=== PATIENT | female | born 1950 | race Caucasian/White ===

== ENCOUNTER 2017-05-28 11:06 | Observation (INO) | payer MEDICARE, MEDICAID ==
[2017-05-28] MEDS ORDERED: Nitroglycerin 0.4 MG TAB (25 Tab Bottle) ONE (11:18)
[2017-05-28] MEDS ORDERED: Nitroglycerin 2% Ointment 1 INCH/1 GM Packet ONE (11:18)
[2017-05-28 11:38] LABS: #Basophils 0.1 thou/uL (0.0-0.2); #Eosinphils 0.2 thou/uL (0.0-0.7); #Monocytes 0.6 thou/uL (0.11-0.59); #Neutrophils 4.8 thou/uL (1.40-6.50); %Lymphocytes 34.5 % (21.0-51.0); %Monocytes 7.2 % (0.0-10.0); Hematocrit 43.6 % (36.0-47.0); Mean Platelet Volume 7.6 fL (7.4-10.4); Red Blood Cell (RBC) Count 4.81 mill/uL (4.20-5.40); White Blood Cell (WBC) Count 8.6 thou/uL (4.8-10.8)
[2017-05-28 12:02] LABS: ALT (SGPT) 18 U/L (8-55); AST (SGOT) 20 U/L (5-34); Alkaline Phosphatase 90 U/L (40-150); Anion Gap 11 mmol/L (10-20); BUN (Urea Nitrogen) 9 mg/dL (9.8-20.1); Bilirubin, Total 0.7 mg/dL (0.2-1.2); CK (CPK) 48 U/L (29-168); Calc. Creatinine Clearance 0 mL/min (70-130); Calcium 10.2 mg/dL (7.8-10.44); Carbon Dioxide 30 mmol/L (23-31); Chloride 104 mmol/L (98-107); Estimated GFR-MDRD 89; Globulin 3.7 g/dL (2.4-3.5); Protein, Total 7.9 g/dL (6.0-8.3)
[2017-05-28 12:05] LABS: Troponin I Less than 0.010 ng/mL (< 0.028)
--- NOTE | 2017-05-28 12:48 | RAD ---
CHEST ONE VIEW: HISTORY: Chest pain. COMPARISON: Chest one view from 08/28/2016. FINDINGS: The lungs are clear. The cardiac silhouette and mediastinal contour is within normal limits. No pneumothorax. No focal osseous abnormality. IMPRESSION: Interstitial opacities in the lung bases are similar and may be sequela of scarring. No significant change or evidence of acute intrathoracic abnormality. POS: OFF
[2017-05-28] MEDS ORDERED: Acetaminophen 500 MG TAB ONE (13:42)
[2017-05-28 14:34] LABS: Troponin I Less than 0.010 ng/mL (< 0.028)
[2017-05-28] MEDS ORDERED: Docusate 100 MG CAP PO PRN (14:56)
[2017-05-28] MEDS ORDERED: Calcium Carbonate 500 MG ChewTAB PO PRN (14:56)
[2017-05-28] MEDS ORDERED: Acetaminophen 500 MG TAB PO PRN (14:56)
[2017-05-28] MEDS ORDERED: Senokot 8.6 MG TAB PO PRN (14:56)
[2017-05-28] MEDS ORDERED: Mag-Al 1200 mg/1200 mg/30 ML UDCUP PO PRN (14:56)
[2017-05-28] MEDS ORDERED: traMADol HCl 50 MG TAB PO PRN (15:29)
[2017-05-28 15:31] VITALS: BMI 40.9
[2017-05-28] MEDS ORDERED: Carvedilol 6.25 MG TAB PO SCH (17:00)
--- NOTE | 2017-05-28 17:43 | HP-2 ---
ATTENDING PHYSICIAN: Dr. Farideh Hardin. LOCATION: [facility]. TIME: 1314. CODE STATUS: FULL CODE. PRIMARY CARE PHYSICIAN: Dr. Jorge Patel. PGY1: Dr. Alexandre Padilla. HISTORIAN: Patient and daughter. CHIEF COMPLAINT: Headache and high blood pressure. HISTORY OF PRESENT ILLNESS: A 66-year-old female with past medical history of hypertension, hyperli pidemia and CHF diastolic, presents with a headache since 5:00 a.m. this morning. Patient states th at her headache is bilateral and frontal and described as dull and aching. Patient states she check ed her blood pressure and it was high, which then prompted her to take her blood pressure medication s. She says she does not always take them. She is prescribed lisinopril/HCTZ combo and carvedilol. Associated symptoms include dizziness and some vision changes, which include seeing dogs and havin g blurry vision. Patient denied chest pain, nausea, vomiting or decreased urination. She did take 4 aspirins at home in addition to her blood pressure meds of lisinopril/HCTZ combo and carvedilol. ER: The patient received 1000 mg Tylenol in the ER for headache. She also received a nitropatch an d nitroglycerin as well as 324 mg of aspirin. PAST MEDICAL HISTORY: COPD, hyperlipidemia, JULIO CESAR, CHF, hypertension, fibromyalgia, GERD and AVNRT, s tatus post ablation. PAST SURGICAL HISTORY: Tonsillectomy, cholecystectomy, left knee replacement and left ankle surgery . ALLERGIES: PENICILLIN, CODEINE, LEVAQUIN, CIPROFLOXACIN and SULFA. MEDICATIONS: Lisinopril/HCTZ 12.5/20, carvedilol 12.5 mg, tramadol 50, Nitrostat 0.4, Xanax and Pro ventil. FAMILY HISTORY: Noncontributory. SOCIAL HISTORY: No tobacco or drug use. Endorses 1-2 drinks per week. REVIEW OF SYSTEMS: GENERAL: Denies fevers, chills, weight, appetite, sleep changes, night sweats and fatigue. EYES: Endorses vision changes. ENT: Endorses nasal congestion. RESPIRATORY: Denies cough, congestion or shortness of breath. CARDIOVASCULAR: Denies chest pain or palpitations. Endorses edema. Endorses orthopnea. GASTROINTESTINAL: Denies nausea, vomiting, diarrhea or constipation. Endorses abdominal pain, stat es it is midepigastric and burning. GENITOURINARY: Denies incontinence, dysuria, polyuria or oliguria. SKIN: Denies rashes or lesions. MUSCULOSKELETAL: Denies pain. Endorses tenderness in the left lower extremity and around the ankle . NEUROLOGIC: Denies weakness, numbness and syncope. Endorses headache. Endorses dizziness. PSYCHIATRIC: Denies anxiety and depression. PHYSICAL EXAMINATION: VITAL SIGNS: Blood pressure 128/81, pulse 66, respiratory rate 18, T-max 97.9 and pulse oximetry 95 % on room air. Current weight 104 kilograms. GENERAL: Alert and oriented x4, well-developed, well-nourished, obese and appropriately interactive . EYES: PERRLA, EOMI. Conjunctivae within normal limits. ENT: Nasal mucosa within normal limits. Oropharynx within normal limits. NECK: Supple. No lymphadenopathy, no thyromegaly. CARDIOVASCULAR: Regular rate and rhythm. No murmurs, rubs or gallops. 2+ pedal pulses, 2+ pitting edema. RESPIRATORY: Normal effort. No retractions. Clear to auscultation bilaterally. SKIN: Warm and dry. No cyanosis. ABDOMEN: Soft and nontender to palpation. Positive bowel sounds in all 4 quadrants. No masses or distention. EXTREMITIES: No clubbing or cyanosis. 2+ pitting edema in lower extremities. MUSCULOSKELETAL: Structure within normal limits. NEUROLOGIC: No focal deficits. Sensation within normal limits. Cranial nerves II-XII intact. GCS 15. PSYCHIATRIC: Appropriate. LABORATORY AND IMAGING DATA: CBC: White blood cell count 8.6, hemoglobin and hematocrit 14.2 and 4 3.6, platelets 287. Chemistry: 142/3/104/30/9/0.66/84. AST 20, ALT 18, alkaline phosphatase 90, total bilirubin 0.7, calcium 10.2, total protein 7.9, album in 4.2. CK-MB 1.1, troponin 0.01 and GFR 89. EKG: Rate 59, bradycardia, normal sinus rhythm, no ischemic changes, normal axis. Chest x-ray within normal limits. No acute cardiopulmonary changes. ASSESSMENT AND PLAN: A 66-year-old female with past medical history of hypertension, hyperlipidemia , congestive heart failure, presents with elevated blood pressure of 220/110 and headache, vision ch anges and dizziness, admitted for hypertensive urgency. 1. Hypertensive urgency, uncontrolled. Restart lisinopril/HCTZ combo in the morning. Monitor for signs and symptoms of end organ damage, q.4 neuro checks and Tylenol for headache. Also, we will re check BMP in the morning to evaluate kidney function as the patient received several doses of aspiri n the day before. 2. Hyperlipidemia, uncontrolled, not on medications. We will order lipid profile. The patient's c alculated ASCVD risk based on lab values from the clinic a year ago was 14.1. We will start atorvas tatin as patient's liver enzymes are normal. We will also start aspirin 81 mg. 3. Congestive heart failure, diastolic, not in acute exacerbation, currently asymptomatic. We will start carvedilol to reduce mortality risk. We will monitor for signs and symptoms of acute volume overload. 4. Chronic obstructive pulmonary disease, chronic. No acute exacerbation. Asymptomatic. We will restart home meds, Proventil and Spiriva. 5. Hypokalemia. We will replace with 40 of KCl. 6. Deep venous thrombosis prophylaxis. We will start patient on Lovenox. DISPOSITION AND LENGTH OF STAY: Two days. Symptomatic medications will be provided. History and physical exam as well as management was discussed with Dr. Farideh Hardin.
[2017-05-28] MEDS ORDERED: Potassium Chloride 40 MEQ in Sodium Chloride 0.9% 500 ML IVPB SCH ×4 (18:00)
[2017-05-28 18:05] LABS: Troponin I Less than 0.010 ng/mL (< 0.028)
[2017-05-28] MEDS: Famotidine 20 MG TAB PO SCH (19:33)
[2017-05-28] MEDS: PROVENTIL INHALER 6.7 G (200 INHALATIONS) INH SCH (19:36)
[2017-05-28] MEDS: Mometasone/Formoterol 120 PUFF INHALER INH SCH (19:38)
[2017-05-28] MEDS ORDERED: Potassium Chloride 20 MEQ TAB PO SCH (21:00)
[2017-05-28] MEDS ORDERED: Atorvastatin Calcium 40 MG TAB PO SCH (21:00)
[2017-05-29] MEDS: PROVENTIL INHALER 6.7 G (200 INHALATIONS) INH SCH ×3 (00:23→13:25)
--- NOTE | 2017-05-29 01:45 | HP ---
DATE OF ADMISSION: 05/28/2017 ATTENDING: Dr. Farideh Hardin. RESIDENT: Dr. Berta Padilla. Ms. Masterson is a pleasant 66-year-old white female with a past medical history of hypertension and asthma, who presents with hypertensive emergency. She presented to the ER with blood pressures greater than 200/180 with headache. In the ER, she was given a nitropatch and IV labetalol. She currently has a blood pressure of 138/67. EKG was normal. Cardiac enzymes are negative x2. She is currently asymptomatic. We will resume her home medications and observe overnight, as it is very possible that once the nitropatch has been removed, her blood pressures will rebound. BERNABE
[2017-05-29 04:51] LABS: #Eosinphils 0.2 thou/uL (0.0-0.7); #Lymphocytes 2.7 thou/uL (1.20-3.40); #Monocytes 0.5 thou/uL (0.11-0.59); #Neutrophils 3.1 thou/uL (1.40-6.50); %Basophils 0.7 % (0.0-1.0); %Eosinophils 2.8 % (0.0-10.0); %Lymphocytes 41.2 % (21.0-51.0); %Monocytes 8.3 % (0.0-10.0); Hematocrit 39.4 % (36.0-47.0); Mean Platelet Volume 7.9 fL (7.4-10.4); Red Blood Cell (RBC) Count 4.34 mill/uL (4.20-5.40); White Blood Cell (WBC) Count 6.5 thou/uL (4.8-10.8)
[2017-05-29 05:26] LABS: Anion Gap 13 mmol/L (10-20); BUN (Urea Nitrogen) 12 mg/dL (9.8-20.1); Calc. Creatinine Clearance 133 mL/min (70-130); Calcium 9.6 mg/dL (7.8-10.44); Carbon Dioxide 26 mmol/L (23-31); Chloride 104 mmol/L (98-107); Estimated GFR-MDRD Greater than 90
[2017-05-29] MEDS: Mometasone/Formoterol 120 PUFF INHALER INH SCH (06:29)
--- NOTE | 2017-05-29 06:48 | PDOC.FM ---
- Subjective Subjective: No acute events overnight. No headache this morning. VSS overnight. - Objective MAR Reviewed: Yes Vital Signs & Weight: Vital Signs (12 hours) Temp Pulse Resp BP Pulse Ox 05/29/17 04:00 98.1 F 58 L 14 161/71 H 94 L 05/29/17 00:00 97.7 F 56 L 12 122/59 L 92 L 05/28/17 20:00 97.7 F 64 16 05/28/17 19:36 64 16 96 05/28/17 19:25 98.3 F 57 L 18 138/70 94 L Weight Weight 101.605 kg I&O: 05/27/17 05/28/17 05/29/17 06:59 06:59 06:59 Intake Total 810 Output Total 500 Balance 310 Result Diagrams: 05/29/17 04:36 05/29/17 04:36 Phys Exam - Physical Examination HEENT: PERRLA, moist MMs, sclera anicteric Neck: no nodes, no JVD, supple Respiratory: no wheezing, no rales, no rhonchi, clear to auscultation bilateral Cardiovascular: RRR, no significant murmur, no rub, gallop Gastrointestinal: soft, non-tender, no distention Musculoskeletal: edema present (2+ pitting edema) Neurological: non-focal Psychiatric: normal affect, A&O x 3 Dx/Plan (1) Hyperlipidemia Code(s): E78.5 - HYPERLIPIDEMIA, UNSPECIFIED Status: Acute (2) Hypertensive urgency Code(s): I16.0 - HYPERTENSIVE URGENCY Status: Acute - Plan Plan: 66 yo female with pmhx of htn and CHFd admitted for hypertensive urgency. 1.)Hypertensive urgency-resolved Headache resolved. Initial complaint of jaw pain. Recommend outpatient follow-up with cardiology regarding jaw pain and >1 yr since stress test. Patient denied chestpain and had negative trops X 3. Home meds of Lisinopril and HCTZ resumed but increased dose to 20/12.5mg daily. 2.)HLD-uncontrolled ASCVD risk of 14.4% Started atorvastatin 40mg; recommend titrating up in outpatient setting. 3.)CHFd-no acute exacerbation -Carvedilol resumed (home med) -Recommend outpatient follow-up with cardiology as it has been >1yr since echo. Dispo-Dc home with close follow-up with PCP
[2017-05-29] MEDS ORDERED: Lisinopril/Hydrochlorothiazide 20 mg/12.5 mg Tablet PO SCH (09:00)
[2017-05-29] MEDS ORDERED: Enoxaparin Sodium 40 MG/0.4 ML SYRINGE SC SCH (09:00)
[2017-05-29] MEDS: Carvedilol 25 MG TAB PO SCH ×2 (09:30→16:24)
[2017-05-29] MEDS: Famotidine 20 MG TAB PO SCH (09:30)
--- NOTE | 2017-05-29 11:57 | ADD-PRG ---
DATE OF SERVICE: 05/29/2017 This is an addendum to the note of Dr. Berta Padilla. Ms. Masterson this morning is awake, alert, oriented x3. She is in fact pleasant and her blood pressure is now normal. Her hypertensive urgency has resolved and she will be discharged home on her usual medications. She tells us that she in the past only took her medications when she developed severe headache. We have, of course, explained to her the importance of taking her medications daily and t o follow up with our clinic on a regular basis. Her CBC was normal. Her chemistries were normal ex cept for slightly low potassium of 3, which was corrected to 3.8. Her serial troponins were all neg ative.
[2017-05-29 15:30] VITALS: TEMP 98.4
[2017-05-29 17:29] VITALS: BP 166/88
--- NOTE | 2017-05-30 11:36 | DIS-2 ---
DATE OF ADMISSION: 05/28/2017 DATE OF DISCHARGE: 05/29/2017 ADMITTING RESIDENT: Katie Schroeder MD ADMITTING ATTENDING: Farideh Hardin DO DISCHARGING RESIDENT: Katie Schroeder MD DISCHARGING ATTENDING: Viktor Malik MD CONSULTATIONS: None. PROCEDURES: 1. EKG, normal. 2. Chest x-ray, clear cardiac silhouette and mediastinal contour within normal limits. No pneumothorax, no focal osseous abnormality, interstitial opacities in the lung bases are similar and maybe sequelae of scarring. No significant change or evidence of acute intrathoracic abnormality. PRIMARY DIAGNOSIS: Hypertensive urgency. SECONDARY DIAGNOSES: 1. Hypertension. 2. Hyperlipidemia. 3. Congestive heart failure. 4. Chronic obstructive pulmonary disease. 5. Hypokalemia. DISCHARGE MEDICATIONS: 1. Albuterol sulfate 2 puffs every 6 hours. 2. Aspirin 81 mg daily. 3. Atorvastatin 40 mg at bedtime. 4. Lisinopril/HCTZ 20/12.5 mg oral daily. 5. Xanax 0.5 mg orally twice a day as needed. 6. Tylenol 650 mg every 4 hours as needed for headaches. 7. Famotidine 20 mg oral twice a day. 8. Tramadol 50 mg oral 4 times a day as needed for pain. 9. Symbicort 1 puff inhalation b.i.d. 10. Carvedilol 12.5 mg oral b.i.d. daily. 11. Potassium chloride. 12. Lasix, unknown dose. Patient was unaware of the dose and has been out of her medicine for several days. DISCONTINUED MEDICATIONS: Lisinopril/hydrochlorothiazide 10 mg/12.5 mg. HISTORY OF PRESENT ILLNESS AND HOSPITAL COURSE: This is a 66-year-old female with a past medical history of hypertension, hyperlipidemia, and diastolic congestive heart failure who presented with a headache starting at 5:00 a.m. on 05/28/2017. The patient stated that her headache was bilateral as well as frontal, described as dull and aching. The patient states she checked her blood pressure and it was elevated which prompted her to take her blood pressure medication. She says she does not always take them. She is normally prescribed lisinopril/HCTZ combination and carvedilol. Associated symptoms include dizziness and some vision changes. Patient denied chest pain, nausea, vomiting or decreased urination. She did take 4 aspirins at home in addition to her blood pressure meds of lisinopril/HCTZ combination and carvedilol. Patient received 1000 mg, Tylenol in the ER for the headache. She also received a nitropatch and nitroglycerin as well as 324 mg of aspirin in the ER. Upon getting to the ER, the patient's blood pressure was 220/110. The patient was admitted for hypertensive urgency. After patient received her nitro patch, the patient's blood pressure rapidly dropped to 128/81. The patient's vitals were otherwise within normal limits. Patient's exam was grossly within normal limits as well. The patient's troponins were less than 0.01 x3 as well as her CK-MB was normal. Patient's additional labs including a CBC and CMP were grossly normal aside from having a low potassium or hypokalemia of 3.0. 1. Hypertensive urgency. The patient presented to the ER with blood pressures greater than 200/110. Patient was given the nitropatch and IV labetalol. The patient's blood pressures dropped to the 120s to 130s systolic. The patient's EKG was normal. Her cardiac enzymes were negative x3. The patient initially had a headache, was given 1000 mg of IV Tylenol. Patient was admitted to the hospital, monitored overnight. Since the patient's blood pressure rapidly dropped, the patient's home medication of lisinopril/HCTZ was held overnight. The patient was given hydralazine p.r.n. overnight which she did not require. The nitropatch was removed as the patient described a worsening headache. The patient's blood pressures were controlled overnight. She was started on a higher dose of lisinopril/HCTZ, it was the 12.5/20 combination and the next morning, the patient's blood pressure was controlled and patient was asymptomatic. 2. Hyperlipidemia. The patient is not currently on any statin. The patient's lipid profile was ordered and her ASCVD risk was calculated to be 14.1%. The patient was started on atorvastatin 40 mg daily. 3. Diastolic congestive heart failure. The patient was not in an acute exacerbation. The patient stated that she took carvedilol which was restarted during the hospital stay. The patient was not volume overloaded and without symptoms of an acute heart failure exacerbation. 4. Chronic obstructive pulmonary disease. Patient said her home med was Proventil. The patient was not actively having an acute exacerbation and was not short of breath. She was satting well, not tachypneic. The patient was also restarted on her Spiriva. 5. Hypokalemia. Patient's hypokalemia was replaced with 40 KCl IV and her hypokalemia resolved. DISPOSITION: Stable. DISCHARGE INSTRUCTIONS: Patient was discharged home on a heart healthy diet with no restrictions on activity with close followup with her primary care physician at [facility]. BERNABE
== END 2017-05-29 17:49 | disposition home or self-care (01) ==
LOC: ERS 11:06 → 2SW 13:10
PROVIDERS: ADMIT Family Medicine; ATTEND Family Medicine
DX: I16.0 Hypertensive urgency (principal); E78.5 Hyperlipidemia, unspecified; J44.9 Chronic obstructive pulmonary disease, unspecified; E87.6 Hypokalemia; I11.0 Hypertensive heart disease with heart failure; I50.30 Unspecified diastolic (congestive) heart failure; G47.33 Obstructive sleep apnea (adult) (pediatric); M79.7 Fibromyalgia; K21.9 Gastro-esophageal reflux disease without esophagitis; Z79.82 Long term (current) use of aspirin; Z79.899 Other long term (current) drug therapy; Z88.1 Allergy status to other antibiotic agents; Z88.5 Allergy status to narcotic agent; Z88.0 Allergy status to penicillin; Z88.2 Allergy status to sulfonamides; Z96.652 Presence of left artificial knee joint; Z90.89 Acquired absence of other organs; Z90.49 Acquired absence of other specified parts of digestive tract; Z98.890 Other specified postprocedural states; Z86.79 Personal history of other diseases of the circulatory system
CPT/HCPCS: 71010; 80048; 80053; 80061; 82550; 82553; 84484 ×2; 85025 ×2; 93005; 94640 ×2; 94664; 96372; 99285; G0378; 36415; J1650; J3480; J7050

== ENCOUNTER 2017-05-31 07:47 | Emergency (ER) | payer MEDICARE, MEDICAID ==
[2017-05-31 08:45] LABS: #Basophils 0.1 thou/uL (0.0-0.2); #Eosinphils 0.2 thou/uL (0.0-0.7); #Lymphocytes 2.5 thou/uL (1.20-3.40); #Monocytes 0.6 thou/uL (0.11-0.59); #Neutrophils 3.9 thou/uL (1.40-6.50); %Basophils 1.2 % (0.0-1.0); %Eosinophils 2.3 % (0.0-10.0); %Lymphocytes 34.7 % (21.0-51.0); %Monocytes 7.7 % (0.0-10.0); Hematocrit 40.9 % (36.0-47.0); Mean Platelet Volume 8.1 fL (7.4-10.4); White Blood Cell (WBC) Count 7.2 thou/uL (4.8-10.8)
[2017-05-31 09:10] LABS: Troponin I Less than 0.010 ng/mL (< 0.028)
[2017-05-31 09:13] LABS: ALT (SGPT) 17 U/L (8-55); AST (SGOT) 19 U/L (5-34); Alkaline Phosphatase 87 U/L (40-150); Anion Gap 10 mmol/L (10-20); BUN (Urea Nitrogen) 9 mg/dL (9.8-20.1); Bilirubin, Total 0.6 mg/dL (0.2-1.2); CK (CPK) 54 U/L (29-168); Calc. Creatinine Clearance 0 mL/min (70-130); Calcium 9.9 mg/dL (7.8-10.44); Carbon Dioxide 29 mmol/L (23-31); Chloride 105 mmol/L (98-107); Estimated GFR-MDRD Greater than 90; Globulin 3.4 g/dL (2.4-3.5); Lipase 39 U/L (8-78); Protein, Total 7.4 g/dL (6.0-8.3)
--- NOTE | 2017-05-31 09:20 | RAD ---
PORTABLE UPRIGHT FRONTAL CHEST: Date: 05/31/17 COMPARISON: 05/28/17. HISTORY: High blood pressure. Chest pain. FINDINGS: No pneumothorax, pleural fluid, focal consolidation, or alveolar edema. Heart and mediastinal contou r unremarkable. IMPRESSION: No acute findings. POS: [facility]
[2017-05-31] MEDS ORDERED: cloNIDine HCl 0.1 MG TAB ONE (09:25)
--- NOTE | 2017-06-02 14:48 | EKG ---
Test Reason : Blood Pressure : / mmHG Vent. Rate : 057 BPM Atrial Rate : 057 BPM P-R Int : 164 ms QRS Dur : 090 ms QT Int : 460 ms P-R-T Axes : 053 018 024 degrees QTc Int : 447 ms Sinus bradycardia Otherwise normal ECG Confirmed by RAFAEL HARMAN, JIMENA Saenz ([id number]), business editor JEREMY DOWD ([id number]) on 06/02/2017 2:48:19 PM Referred By: Confirmed By:JIMENA HALL MD
== END 2017-05-31 09:37 | disposition home or self-care (01) ==
LOC: ERS 07:47
DX: I11.0 Hypertensive heart disease with heart failure (principal); I50.9 Heart failure, unspecified; J44.9 Chronic obstructive pulmonary disease, unspecified; E78.2 Mixed hyperlipidemia; G47.30 Sleep apnea, unspecified; F41.9 Anxiety disorder, unspecified; Z79.899 Other long term (current) drug therapy
CPT/HCPCS: 36415; 71010; 80053; 82553; 83690; 83880; 84484; 85025; 93005

== ENCOUNTER 2017-08-28 08:04 | Emergency (ER) | payer MEDICARE, MEDICAID | END 2017-08-28 08:33 | disposition home or self-care (01) | LOC: ERS 08:04 | DX: J11.1 Influenza due to unidentified influenza virus with other respiratory manifestations (principal); J44.9 Chronic obstructive pulmonary disease, unspecified; E78.1 Pure hyperglyceridemia; E78.5 Hyperlipidemia, unspecified; G47.30 Sleep apnea, unspecified; I11.0 Hypertensive heart disease with heart failure; I50.9 Heart failure, unspecified; F41.9 Anxiety disorder, unspecified | CPT/HCPCS: 99283 ==

== ENCOUNTER 2017-09-11 09:49 | Emergency (ER) | payer MEDICARE, MEDICAID ==
[2017-09-11 10:15] LABS: #Basophils 0.1 thou/uL (0.0-0.2); #Eosinphils 0.3 thou/uL (0.0-0.7); #Lymphocytes 3.4 thou/uL (1.20-3.40); #Monocytes 0.7 thou/uL (0.11-0.59); #Neutrophils 5.9 thou/uL (1.40-6.50); %Eosinophils 2.8 % (0.0-10.0); %Lymphocytes 32.6 % (21.0-51.0); %Monocytes 6.3 % (0.0-10.0); %Neutrophils 57.3 % (42.0-75.0); Hemoglobin 14.6 g/dL (12.0-16.0); Mean Corpuscular HGB CONC 31.7 g/dL (32.0-36.0); Mean Corpuscular Hemoglobin 28.6 pg (27.0-31.0); Mean Corpuscular Volume 90.2 fl (81.0-99.0); Mean Platelet Volume 7.7 fL (7.4-10.4); Platelet Count 370 thou/uL (130-400); RBC Distribution Width 12.6 % (11.5-14.5); White Blood Cell (WBC) Count 10.4 thou/uL (4.8-10.8)
[2017-09-11 10:40] LABS: ALT (SGPT) 18 U/L (8-55); AST (SGOT) 18 U/L (5-34); Albumin 4.2 g/dL (3.4-4.8); Alkaline Phosphatase 87 U/L (40-150); Anion Gap 15 mmol/L (10-20); BUN (Urea Nitrogen) 11 mg/dL (9.8-20.1); Bilirubin, Total 0.4 mg/dL (0.2-1.2); CK (CPK) 61 U/L (29-168); Calc. Creatinine Clearance 0 mL/min (70-130); Calcium 10.2 mg/dL (7.8-10.44); Carbon Dioxide 22 mmol/L (23-31); Chloride 105 mmol/L (98-107); Estimated GFR-MDRD 82; Globulin 3.8 g/dL (2.4-3.5); Glucose 90 mg/dL (80-115); Lipase 55 U/L (8-78); Sodium 138 mmol/L (136-145)
[2017-09-11 10:44] LABS: CKMB 1.7 ng/mL (0-6.6); Troponin I Less than 0.010 ng/mL (< 0.028)
[2017-09-11] MEDS ORDERED: Aspirin 325 MG TAB ONE (10:58)
--- NOTE | 2017-09-11 11:13 | RAD ---
PORTABLE UPRIGHT FRONTAL CHEST RADIOGRAPH: Date: 09/11/17 COMPARISON: 05/31/17. HISTORY: Chest pain. FINDINGS: No pneumothorax, pleural fluid, focal consolidation, or alveolar edema. Heart and mediastinal contour s are stable. IMPRESSION: No acute findings. POS: [facility]
== END 2017-09-11 12:58 | disposition home or self-care (01) ==
LOC: ERS 09:49
DX: R07.89 Other chest pain (principal); J44.9 Chronic obstructive pulmonary disease, unspecified; E78.2 Mixed hyperlipidemia; G47.30 Sleep apnea, unspecified; I11.0 Hypertensive heart disease with heart failure; I50.9 Heart failure, unspecified; F41.9 Anxiety disorder, unspecified; Z79.899 Other long term (current) drug therapy
CPT/HCPCS: 36415; 71045; 80053; 82553; 83690; 83880; 84484; 85025; 93005

== ENCOUNTER 2017-10-05 09:16 | Observation (INO) | payer MEDICARE, MEDICAID ==
[2017-10-05] MEDS ORDERED: Acetaminophen 500 MG TAB ONE (09:52)
[2017-10-05] MEDS ORDERED: Nitroglycerin 0.4 MG TAB (25 Tab Bottle) ONE (09:52)
[2017-10-05] MEDS ORDERED: Nitroglycerin 2% Ointment 1 INCH/1 GM Packet ONE (10:09)
[2017-10-05 10:20] LABS: #Basophils 0.1 thou/uL (0.0-0.2); #Eosinphils 0.2 thou/uL (0.0-0.7); #Monocytes 0.7 thou/uL (0.11-0.59); %Eosinophils 2.6 % (0.0-10.0); %Lymphocytes 33.4 % (21.0-51.0); %Monocytes 7.7 % (0.0-10.0); %Neutrophils 55.3 % (42.0-75.0); Hemoglobin 13.7 g/dL (12.0-16.0); Mean Corpuscular Hemoglobin 29.8 pg (27.0-31.0); Mean Corpuscular Volume 90.3 fl (81.0-99.0); Mean Platelet Volume 8.3 fL (7.4-10.4); Platelet Count 295 thou/uL (130-400); RBC Distribution Width 12.8 % (11.5-14.5); Red Blood Cell (RBC) Count 4.61 mill/uL (4.20-5.40); White Blood Cell (WBC) Count 9.1 thou/uL (4.8-10.8)
--- NOTE | 2017-10-05 10:20 | RAD ---
CHEST 1 VIEW: Date: 10/05/17 HISTORY: Chest pain. COMPARISON: 09/11/17. FINDINGS: Cardiac silhouette is magnified by projection. Shallow inspiration accentuates pulmonary markings. Me diastinum is midline. There is no lobar consolidation or evidence of pneumothorax. air sampling and monitoring le ads overlie the chest. There are degenerative changes of each shoulder. IMPRESSION: No active cardiopulmonary abnormalities are demonstrated. POS: [facility]
[2017-10-05 10:48] LABS: CKMB 1.1 ng/mL (0-6.6); Troponin I Less than 0.010 ng/mL (< 0.028)
[2017-10-05 11:07] LABS: Albumin 4.2 g/dL (3.4-4.8); Calcium 10.3 mg/dL (7.8-10.44); Chloride 104 mmol/L (98-107); Globulin 3.8 g/dL (2.4-3.5); Glucose 89 mg/dL (80-115); Potassium 3.3 mmol/L (3.5-5.1); Sodium 141 mmol/L (136-145)
[2017-10-05 11:08] LABS: Anion Gap 12 mmol/L (10-20); Bilirubin, Total 0.3 mg/dL (0.2-1.2); Carbon Dioxide 28 mmol/L (23-31)
[2017-10-05 11:09] LABS: Alkaline Phosphatase 93 U/L (40-150)
[2017-10-05 11:10] LABS: Calc. Creatinine Clearance 0 mL/min (70-130); Estimated GFR-MDRD 78
[2017-10-05 11:11] LABS: BUN (Urea Nitrogen) 18 mg/dL (9.8-20.1)
[2017-10-05 11:12] LABS: ALT (SGPT) 15 U/L (8-55); AST (SGOT) 17 U/L (5-34)
[2017-10-05 13:14] VITALS: TEMP 98.5
[2017-10-05 13:21] VITALS: BP 130/81; BMI 41.7
[2017-10-05] MEDS ORDERED: Acetaminophen 325 MG TAB PO PRN (13:48)
[2017-10-05] MEDS ORDERED: ALPRAZolam 0.5 MG TAB PO PRN (13:48)
[2017-10-05] MEDS ORDERED: Furosemide 20 MG TAB PO PRN (13:50)
[2017-10-05] MEDS ORDERED: traMADol HCl 50 MG TAB PO PRN (13:53)
[2017-10-05 14:09] LABS: Troponin I Less than 0.010 ng/mL (< 0.028)
[2017-10-05] MEDS ORDERED: Mometasone/Formoterol 120 PUFF INHALER INH SCH (18:30)
[2017-10-05] MEDS ORDERED: PROVENTIL INHALER 6.7 G (200 INHALATIONS) INH SCH (19:00)
[2017-10-05] MEDS ORDERED: Carvedilol 6.25 MG TAB PO SCH (21:00)
[2017-10-05] MEDS ORDERED: Famotidine 20 MG TAB PO SCH (21:00)
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
[2017-10-06] MEDS ORDERED: Lisinopril/Hydrochlorothiazide 20 mg/12.5 mg Tablet PO SCH (09:00)
== END 2017-10-05 14:52 | disposition left against medical advice (07) ==
LOC: ERS 09:16 → 2SW 11:54
PROVIDERS: ADMIT Internal Medicine; ATTEND Internal Medicine
DX: R07.2 Precordial pain (principal); I10 Essential (primary) hypertension; E78.5 Hyperlipidemia, unspecified; F32.9 Major depressive disorder, single episode, unspecified; E66.01 Morbid (severe) obesity due to excess calories; M19.90 Unspecified osteoarthritis, unspecified site; Z68.41 Body mass index [BMI] 40.0-44.9, adult; Z79.82 Long term (current) use of aspirin; Z79.2 Long term (current) use of antibiotics; Z79.899 Other long term (current) drug therapy; Z88.0 Allergy status to penicillin; Z88.2 Allergy status to sulfonamides; Z88.5 Allergy status to narcotic agent; Z88.1 Allergy status to other antibiotic agents; Z96.652 Presence of left artificial knee joint; Z90.710 Acquired absence of both cervix and uterus; Z90.49 Acquired absence of other specified parts of digestive tract; Z90.89 Acquired absence of other organs; Z98.890 Other specified postprocedural states
CPT/HCPCS: 71045; 80053; 82553; 83880; 84484 ×2; 85025; 93005; 99285; G0378; 36415

== ENCOUNTER 2017-10-06 11:01 | Observation (INO) | payer MEDICARE, MEDICAID ==
--- NOTE | 2017-10-06 11:25 | RAD ---
CHEST 1 VIEW: HISTORY: Chest pain. COMPARISON: 10/05/17. FINDINGS: Cardiac silhouette is magnified by projection. Pulmonary vasculature is unremarkable. Mediastinum i s midline. There is no confluent airspace consolidation or evidence of pneumothorax. Degenerative c hanges involve each shoulder. electronic device monitor leads overlie the chest. IMPRESSION: No active cardiopulmonary abnormalities are demonstrated. POS: [facility]
[2017-10-06 11:27] LABS: #Basophils 0.1 thou/uL (0.0-0.2); #Eosinphils 0.2 thou/uL (0.0-0.7); #Lymphocytes 3.4 thou/uL (1.20-3.40); #Monocytes 0.5 thou/uL (0.11-0.59); #Neutrophils 5.7 thou/uL (1.40-6.50); %Basophils 1.2 % (0.0-1.0); %Eosinophils 2.1 % (0.0-10.0); %Lymphocytes 33.9 % (21.0-51.0); %Monocytes 5.2 % (0.0-10.0); %Neutrophils 57.6 % (42.0-75.0); Mean Corpuscular Hemoglobin 29.8 pg (27.0-31.0); Mean Corpuscular Volume 90.3 fl (81.0-99.0); Mean Platelet Volume 8.5 fL (7.4-10.4); Platelet Count 298 thou/uL (130-400); RBC Distribution Width 12.8 % (11.5-14.5); Red Blood Cell (RBC) Count 4.69 mill/uL (4.20-5.40)
[2017-10-06 11:53] LABS: CKMB 1.2 ng/mL (0-6.6); Troponin I Less than 0.010 ng/mL (< 0.028)
[2017-10-06 12:42] LABS: Calcium 9.8 mg/dL (7.8-10.44); Chloride 106 mmol/L (98-107); Sodium 142 mmol/L (136-145)
[2017-10-06 12:43] LABS: Globulin 3.6 g/dL (2.4-3.5); Glucose 117 mg/dL (80-115); Protein, Total 7.6 g/dL (6.0-8.3)
[2017-10-06 12:44] LABS: Anion Gap 11 mmol/L (10-20); Carbon Dioxide 28 mmol/L (23-31)
[2017-10-06 12:45] LABS: Bilirubin, Total 0.4 mg/dL (0.2-1.2)
[2017-10-06 12:46] LABS: Alkaline Phosphatase 88 U/L (40-150); Calc. Creatinine Clearance 0 mL/min (70-130); Estimated GFR-MDRD 90
[2017-10-06 12:47] LABS: BUN (Urea Nitrogen) 11 mg/dL (9.8-20.1)
[2017-10-06 12:48] LABS: AST (SGOT) 15 U/L (5-34)
[2017-10-06 12:49] LABS: ALT (SGPT) 12 U/L (8-55); CK (CPK) 44 U/L (29-168)
[2017-10-06] MEDS ORDERED: Potassium Bicarbonate/Cit Ac 25 MEQ TAB PO SCH (14:30)
[2017-10-06 15:28] LABS: Troponin I Less than 0.010 ng/mL (< 0.028)
[2017-10-06] MEDS ORDERED: Acetaminophen 325 MG TAB PO PRN (16:04)
[2017-10-06] MEDS ORDERED: Ondansetron HCl/PF 4 MG/2 ML Vial IVP PRN (16:04)
[2017-10-06] MEDS ORDERED: Ondansetron ODT 4 MG TAB SL PRN (16:04)
[2017-10-06] MEDS ORDERED: Aspirin 325 MG TAB PO SCH (16:15)
[2017-10-06 16:33] VITALS: BMI 40.6
[2017-10-06] MEDS ORDERED: Nitroglycerin 2% Ointment 1 INCH/1 GM Packet TOP SCH (22:00)
[2017-10-07 04:52] LABS: Anion Gap 12 mmol/L (10-20); BUN (Urea Nitrogen) 12 mg/dL (9.8-20.1); Calc. Creatinine Clearance 128 mL/min (70-130); Calcium 9.9 mg/dL (7.8-10.44); Carbon Dioxide 27 mmol/L (23-31); Chloride 104 mmol/L (98-107); Estimated GFR-MDRD 89; Glucose 90 mg/dL (80-115); Potassium 4.3 mmol/L (3.5-5.1); Sodium 139 mmol/L (136-145)
[2017-10-07] MEDS ORDERED: traMADol HCl 50 MG TAB PO PRN (05:43)
[2017-10-07] MEDS ORDERED: Acetaminophen 325 MG TAB PO PRN (05:44)
[2017-10-07] MEDS ORDERED: PROVENTIL INHALER 6.7 G (200 INHALATIONS) INH PRN (05:45)
[2017-10-07] MEDS ORDERED: ALPRAZolam 0.5 MG TAB PO PRN (05:45)
[2017-10-07] MEDS ORDERED: Furosemide 20 MG TAB PO PRN (05:48)
[2017-10-07 07:07] VITALS: TEMP 97.9
[2017-10-07] MEDS: Carvedilol 25 MG TAB PO SCH ×2 (08:07→11:18)
[2017-10-07] MEDS: Amlodipine 10 MG TAB PO SCH ×2 (08:07→08:09)
[2017-10-07] MEDS ORDERED: Azithromycin 250 MG TAB PO SCH (09:00)
[2017-10-07] MEDS ORDERED: Lisinopril/Hydrochlorothiazide 20 mg/12.5 mg Tablet PO SCH (09:00)
[2017-10-07] MEDS ORDERED: Famotidine 20 MG TAB PO SCH (09:00)
--- NOTE | 2017-10-07 11:30 | NM ---
RADIONUCLIDE STRESS ONLY MYOCARDIAL PERFUSION SCAN WITH CT ATTENUATION CORRECTION AND SPECT IMAGING LEFT VENTRICULAR WALL MOTION EVALUATION AND EJECTION FRACTION: HISTORY: Chest pain. FINDINGS: There is homogeneous uptake of radiotracer throughout the left ventricular myocardium without focal p erfusion defect. QGS analysis of gated SPECT images shows some dyskinesis of the septal base. Ejection fraction is ca lculated at 59%. IMPRESSION: Normal myocardial perfusion stress only exam. Normal left ventricular ejection fraction. POS: [facility]
[2017-10-07 12:45] VITALS: BP 129/70
--- NOTE | 2017-10-07 14:50 | HP ---
History of present illness: Miss brumfield is a 67 yr old w/f with pmh of HTN, djd came with c/o chest pain which is retrosternal, sharp, radiates to left arm. No diaphoresis, no nausea, no sob. pain started 2 days ago on and off. pt was admitted on 10/05/17but she did not stay. she signed out AMA and came back with chest pain today. pt was evaluated in the ER and had normal cardiac enzymes and EKG. she is being admitted to rule out acute ME and and for further managemnt in view of her risk factors. Pt recieved Asa and nitro in ER. Pat medical history 1. Hypertension, 2. Hyperlipidemia. 3. Degenerative joint disease. 4. History of sleep apnea. 5. History of fibromyalgia. PAST SURGICAL HISTORY: 1. Status post left knee replacement. 2. Status post cholecystectomy. 3. Status post hysterectomy. 4. Status post tonsillectomy. CURRENT MEDICATIONS: Patient is on Coreg 12.5 b.i.d., lisinopril with hydrochlorothiazide 20/12.5 daily, tramadol 50 mg q.i.d. p.r.n., Pepcid 20 mg b.i.d., aspirin 81 mg daily, Xanax 0.5 b.i.d. p.r.n., albuterol inhaler two puffs q.i.d. p.r.n., Tylenol p.r.n. ALLERGIES: PENICILLIN, SULFA, LEVAQUIN, CODEINE and QUINOLONES. FAMILY HISTORY: Nothing of interest. SOCIAL HISTORY: The patient lives with her daughter. No history of smoking. No history of alcohol. REVIEW OF SYSTEMS: Unremarkable except for the chest pain. PHYSICAL EXAMINATION: GENERAL: The patient is alert, awake, oriented x3. VITAL SIGNS: Temperature 98, pulse 76, respirations 20, blood pressure 166/80. HEENT: Head is normocephalic, atraumatic. Pupils are equal and reactive to light. Nasopharynx is pale and dry. Hard and soft palate, no lesions seen. SKIN: Skin turgor decreased. NECK: Supple. No JVD. LUNGS: Bilateral air entry present, no rales, no rhonchi. CARDIAC: S1, S2 regular. ABDOMEN: Soft, no distention, no tenderness. Normal bowel sounds present. RECTAL: Deferred. CENTRAL NERVOUS SYSTEM: No focal deficits. LABORATORY DATA AND X-RAY FINDINGS: CBC shows WBC 10, hemoglobin 14, hematocrit 42, platelets 298. Metabolic panel: Sodium 142, potassium 3, chloride 102, CO2 28, urea nitrogen 11, creatinine 0.6, glucose 117. CK-MB 1.2 , troponin I less than 0.010. EKG shows normal sinus rhythm, no acute ST-T wave changes seen. Chest x-ray, negative. ASSESSMENT: 1. Chest pain, rule out myocardial infarction. The patient was in the hospital the day before yesterday, but she signed out AMA before she could not get the stress test. 2. Hyperlipidemia. 3. Hypertension, uncontrolled. 4. Degenerative joint disease. 5. History of sleep apnea. PLAN: 1. Vital signs q.4 hours. 2. Activity: As tolerated. 3. Allergies: CODEINE, SULFA, PENICILLIN, QUINOLONES. 4. Hep-Lock. 5. CK-MB and troponin I q.8 hours x2. 6. Lexiscan stress test. 7. Continue home medications. 8. Replace potassium. MTDD
[2017-10-07] MEDS ORDERED: Regadenoson 0.4 MG/5 ML SYRINGE ONE (15:34)
== END 2017-10-07 14:36 | disposition home or self-care (01) ==
LOC: ERS 11:01 → 2SW 15:47
PROVIDERS: ADMIT Internal Medicine; ATTEND Internal Medicine
DX: R07.2 Precordial pain (principal); E78.5 Hyperlipidemia, unspecified; I10 Essential (primary) hypertension; M19.90 Unspecified osteoarthritis, unspecified site; G47.30 Sleep apnea, unspecified; M79.7 Fibromyalgia; Z79.2 Long term (current) use of antibiotics; Z79.82 Long term (current) use of aspirin; Z79.899 Other long term (current) drug therapy; Z88.2 Allergy status to sulfonamides; Z88.1 Allergy status to other antibiotic agents; Z88.5 Allergy status to narcotic agent; Z88.0 Allergy status to penicillin; Z96.652 Presence of left artificial knee joint; Z90.49 Acquired absence of other specified parts of digestive tract; Z90.89 Acquired absence of other organs; Z90.710 Acquired absence of both cervix and uterus
CPT/HCPCS: 71045; 78452; 80048; 80053; 82550; 82553; 83880; 84484 ×2; 85025; 93005; 93017; 93306; 99285; A9500; G0378; 36415; J2785

== ENCOUNTER 2017-12-23 02:43 | Emergency (ER) | payer MEDICAID, MEDICARE ==
[2017-12-23] MEDS ORDERED: Nitroglycerin 2% Ointment 1 INCH/1 GM Packet ONE (02:51)
[2017-12-23] MEDS ORDERED: Furosemide 40 MG/4 ML VIAL ONE (02:51)
[2017-12-23 03:18] LABS: #Basophils 0.1 thou/uL (0.0-0.2); #Eosinphils 0.1 thou/uL (0.0-0.7); #Lymphocytes 2.3 thou/uL (1.20-3.40); #Monocytes 0.7 thou/uL (0.11-0.59); #Neutrophils 5.8 thou/uL (1.40-6.50); %Eosinophils 1.4 % (0.0-10.0); %Lymphocytes 25.4 % (21.0-51.0); %Monocytes 7.3 % (0.0-10.0); %Neutrophils 64.9 % (42.0-75.0); Hemoglobin 13.6 g/dL (12.0-16.0); Mean Corpuscular HGB CONC 34.8 g/dL (32.0-36.0); Mean Corpuscular Hemoglobin 30.5 pg (27.0-31.0); Mean Corpuscular Volume 87.6 fl (81.0-99.0); Mean Platelet Volume 7.9 fL (7.4-10.4); Platelet Count 272 thou/uL (130-400); RBC Distribution Width 12.4 % (11.5-14.5); Red Blood Cell (RBC) Count 4.47 mill/uL (4.20-5.40)
[2017-12-23 03:41] LABS: ALT (SGPT) 20 U/L (8-55); AST (SGOT) 23 U/L (5-34); Albumin 4.2 g/dL (3.4-4.8); Alkaline Phosphatase 87 U/L (40-150); Anion Gap 14 mmol/L (10-20); BUN (Urea Nitrogen) 16 mg/dL (9.8-20.1); Bilirubin, Total 0.5 mg/dL (0.2-1.2); CK (CPK) 56 U/L (29-168); Calc. Creatinine Clearance 0 mL/min (70-130); Calcium 9.7 mg/dL (7.8-10.44); Carbon Dioxide 23 mmol/L (23-31); Chloride 104 mmol/L (98-107); Estimated GFR-MDRD 82; Globulin 3.4 g/dL (2.4-3.5); Glucose 123 mg/dL (80-115); Lipase 50 U/L (8-78); Potassium 3.2 mmol/L (3.5-5.1); Protein, Total 7.6 g/dL (6.0-8.3); Sodium 138 mmol/L (136-145)
[2017-12-23 03:47] LABS: CKMB 1.2 ng/mL (0-6.6); Troponin I Less than 0.010 ng/mL (< 0.028)
--- NOTE | 2017-12-23 08:33 | RAD ---
PORTABLE CHEST: Date: 12/23/17 HISTORY: Chest pain. FINDINGS: Lung gómez are clear. Heart and mediastinum unremarkable. No evidence of vascular congestion. IMPRESSION: No acute process. POS: [facility]
== END 2017-12-23 04:29 | disposition home or self-care (01) ==
LOC: ERS 02:43
DX: R07.9 Chest pain, unspecified (principal); F41.1 Generalized anxiety disorder; E78.5 Hyperlipidemia, unspecified; I11.0 Hypertensive heart disease with heart failure; I50.9 Heart failure, unspecified; J44.9 Chronic obstructive pulmonary disease, unspecified; G47.30 Sleep apnea, unspecified; Z79.82 Long term (current) use of aspirin; Z79.899 Other long term (current) drug therapy
CPT/HCPCS: 36415; 71045; 80053; 82550; 82553; 83690; 83880; 84484; 85025; 93005; 96374; J1940

== ENCOUNTER 2018-05-14 09:14 | Observation (INO) | payer MEDICAID, MEDICARE ==
[2018-05-14] MEDS ORDERED: Fentanyl 100 MCG/2 ML VIAL ONE (09:39)
[2018-05-14] MEDS ORDERED: Labetalol HCl 100 MG/20 ML VIAL ONE ×2 (09:43→10:07)
[2018-05-14 09:48] LABS: #Basophils 0.1 thou/uL (0.0-0.2); #Eosinphils 0.1 thou/uL (0.0-0.7); #Lymphocytes 2.5 thou/uL (1.20-3.40); #Monocytes 0.6 thou/uL (0.11-0.59); #Neutrophils 4.1 thou/uL (1.40-6.50); %Basophils 0.9 % (0.0-1.0); %Eosinophils 1.7 % (0.0-10.0); %Lymphocytes 33.5 % (21.0-51.0); %Monocytes 8.6 % (0.0-10.0); %Neutrophils 55.3 % (42.0-75.0); Hemoglobin 12.5 g/dL (12.0-16.0); Mean Corpuscular HGB CONC 31.6 g/dL (32.0-36.0); Mean Corpuscular Hemoglobin 28.5 pg (27.0-31.0); Mean Corpuscular Volume 90.2 fL (78.0-98.0); Mean Platelet Volume 8.1 fL (7.4-10.4); Platelet Count 302 thou/uL (130-400); RBC Distribution Width 12.6 % (11.5-14.5); Red Blood Cell (RBC) Count 4.39 mill/uL (4.20-5.40); White Blood Cell (WBC) Count 7.4 thou/uL (4.8-10.8)
[2018-05-14] MEDS ORDERED: Labetalol HCl 100 MG/20 ML VIAL SLOW IVP SCH (10:00)
[2018-05-14 10:09] LABS: ALT (SGPT) 16 U/L (8-55); AST (SGOT) 20 U/L (5-34); Albumin 3.8 g/dL (3.4-4.8); Alkaline Phosphatase 91 U/L (40-150); Anion Gap 11 mmol/L (10-20); BUN (Urea Nitrogen) 9 mg/dL (9.8-20.1); Bilirubin, Total 0.4 mg/dL (0.2-1.2); CK (CPK) 75 U/L (29-168); Calc. Creatinine Clearance 0 mL/min (70-130); Calcium 9.1 mg/dL (7.8-10.44); Carbon Dioxide 26 mmol/L (23-31); Chloride 105 mmol/L (98-107); Estimated GFR-MDRD 77; Globulin 3.2 g/dL (2.4-3.5); Glucose 102 mg/dL (80-115); Potassium 3.2 mmol/L (3.5-5.1); Sodium 139 mmol/L (136-145)
[2018-05-14 10:17] LABS: CKMB 1.5 ng/mL (0-6.6); Troponin I Less than 0.010 ng/mL (< 0.028)
--- NOTE | 2018-05-14 10:24 | RAD ---
UPRIGHT PORTABLE CHEST ONE VIEW: History: 67-year-old female with history of chest pain. Comparison: 12-23-17 FINDINGS: Bronchovascular markings are minimally increased bilaterally. No confluent pneumonia, overt edema, or pleural effusion. IMPRESSION: Mild stable increased markings bilaterally. Atherosclerosis of the aorta with ectasia. POS: [facility]
[2018-05-14 10:39] LABS: Bilirubin Negative (Negative); Blood, Urine Negative (Negative); Clarity CLEAR (Clear); Glucose, Urine (Dipstick) Negative (Negative); Leukocyte Trace (Negative); Nitrite Negative (Negative); Protein, Urine (Dipstick) Negative (Neg-Trace); Specific Gravity, Urine 1.007 (1.002-1.036); Urobilinogen 0.2 mg/dL (0.2-1.0); pH, Urine 6.5 (5.0-9.0)
[2018-05-14 10:42] LABS: Bacteria/HPF None Seen HPF (None Seen); Hyaline Casts/LPF 0-3 HYALINE CAST LPF (0-3 Hyaline); RBC/HPF 0-3 HPF (0-3); Squamous Epithelial 0-3 HPF (0-3); WBC/HPF 0-3 HPF (0-3)
[2018-05-14] MEDS ORDERED: Acetaminophen 500 MG TAB ONE (10:54)
[2018-05-14 13:30] LABS: Troponin I Less than 0.010 ng/mL (< 0.028)
[2018-05-14 15:11] VITALS: BP 168/85; TEMP 97.7
[2018-05-14 15:12] VITALS: BMI 40.9
[2018-05-14 16:25] LABS: Troponin I Less than 0.010 ng/mL (< 0.028)
[2018-05-14] MEDS ORDERED: Potassium Chloride 20 MEQ TAB PO SCH (18:30)
[2018-05-14] MEDS ORDERED: cloNIDine 0.1 MG TAB PO PRN (18:31)
[2018-05-14] MEDS ORDERED: Carvedilol 6.25 MG TAB PO SCH (21:00)
[2018-05-14] MEDS ORDERED: Lisinopril/Hydrochlorothiazide 20 mg/12.5 mg Tablet PO SCH (21:00)
--- NOTE | 2018-05-15 02:46 | HP ---
DATE OF ADMISSION: 05/14/2018 REASON FOR ADMISSION AND CHIEF COMPLAINT: Chest pain. HISTORY OF PRESENT ILLNESS: Ms. Patricia Masterson is a 67-year-old female with past medical history of hypertension, degenerative joint disease, hyperlipidemia, and supraventricular tachycardia, came with intermittent chest pain over the last 3 days. Pain is sharp in nature in the retrosternal area, radiates to left side of the jaw and neck. Patient states there is no diaphoresis, no nausea, vomiting, no dizziness. Feels short of breath sometimes. Since the pain is coming and going for 3 days, she called the EMS. EMS gave her aspirin and sprays of nitro with partial relief of pain. The patient was evaluated in the ER and had normal EKG and cardiac enzymes and admitted to rule out myocardial infarction. Currently, she does not have any chest pain. PAST MEDICAL HISTORY: 1. Hypertension. 2. Hyperlipidemia. 3. Degenerative joint disease. 4. History of fibromyalgia. 5. Sleep apnea by history. 6. History of supraventricular tachycardia, stable status post ablation. PAST SURGICAL HISTORY: Status post cholecystectomy, status post hysterectomy, status post tonsillectomy status post left knee replacement. CURRENT MEDICATIONS: The patient is supposed to be on Coreg 12.5 b.i.d., lisinopril with hydrochlorothiazide 20/12.5 daily, tramadol 50 q.i.d. p.r.n., Pepcid 20 b.i.d., aspirin 81 mg daily, Xanax 0.5 b.i.d. p.r.n., albuterol inhaler two puffs q.i.d. p.r.n., Tylenol p.r.n. ALLERGIES: PENICILLIN, SULFA, QUINOLONES and CODEINE. FAMILY HISTORY: Nothing of interest. SOCIAL HISTORY: The patient lives with family. She smokes one pack a day. No history of alcohol or drug abuse. REVIEW OF SYSTEMS: Cardiovascular: Has chest pain. No shortness of breath. Respiratory: No fever or cough. Gastrointestinal: No nausea, vomiting, abdominal pain. Genitourinary: No dysuria or hematuria. Central nervous system: No headache, no dizziness. PHYSICAL EXAMINATION: GENERAL: The patient is alert, awake, oriented x3. VITAL SIGNS: Temperature 98, pulse 79, respiratory rate 20, blood pressure 168/ 85. HEENT: Normocephalic, atraumatic. Pupils are equal and reactive to light. Nasopharynx is pale and dry. Hard and soft palate, no lesions seen. NECK: Supple. No JVD. LUNGS: Breath sounds diminished bilaterally. Percussion dull, no rales, no rhonchi. HEART: S1, S2 regular. ABDOMEN: Soft, no distention, no tenderness. Normal bowel sounds present. RECTAL: Deferred. CENTRAL NERVE SYSTEM: No focal deficit. LABORATORY AND X-RAY FINDINGS: CBC shows WBC 7.4, hemoglobin 12, hematocrit 39 , platelets 302. Metabolic panel: Sodium 139, potassium 3.2, chloride 105, CO2 of 26, urea nitrogen 9, creatinine 0.7, glucose 102, CK-MB 1.5, troponin I less than 0.010. Urinalysis negative. EKG shows normal sinus with no acute ST- T wave changes seen. Chest x-ray, some interstitial markings. ASSESSMENT: 1. Chest pain, rule out myocardial infarction. 2. Hypertension, uncontrolled. 3. Hyperlipidemia. 4. Degenerative joint disease. 5. Chronic pain. 6. Hypokalemia. 7. History of supraventricular tachycardia, status post ablation. PLAN: 1. Vital signs q.4 hours. 2. Activity: As tolerated. 3. Allergies: Multiple include PENICILLIN, SULFA, CODEINE, and QUINOLONES. 4. Diet: Cardiac. 5. Continue home medication. 6. Continue lisinopril with hydrochlorothiazide 20/12.5 b.i.d. 7. Troponin I q.8 hours x2. 8. KCl 20 mEq q.4 hours x2 doses. 9. Cardiology consult. [facility]
--- NOTE | 2018-05-15 16:50 | EKG ---
Test Reason : [employer] Blood Pressure : / mmHG Vent. Rate : 068 BPM Atrial Rate : 068 BPM P-R Int : 156 ms QRS Dur : 096 ms QT Int : 428 ms P-R-T Axes : 066 023 027 degrees QTc Int : 455 ms Normal sinus rhythm Normal ECG Confirmed by LD HARMAN, DR. Griggs (4) on 05/15/2018 4:50:22 PM Referred By: Confirmed By:DR. Anson JAFFE MD
--- NOTE | 2018-05-15 17:12 | EKG ---
Test Reason : Blood Pressure : / mmHG Vent. Rate : 060 BPM Atrial Rate : 060 BPM P-R Int : 156 ms QRS Dur : 086 ms QT Int : 482 ms P-R-T Axes : 049 006 009 degrees QTc Int : 482 ms Normal sinus rhythm Minimal voltage criteria for LVH, may be normal variant Cannot rule out Anterior infarct , age undetermined Abnormal ECG Confirmed by LD HARMAN, DR. Griggs ([id number]) on 05/15/2018 5:12:09 PM Referred By: SINDY Confirmed By:DR. Anson JAFFE MD
--- NOTE | 2018-05-16 03:35 | DIS ---
DATE OF ADMISSION: 05/14/2018 DATE OF DISCHARGE: 05/14/2018 ADMITTING DIAGNOSES: 1. Chest pain, rule out myocardial infarction. 2. Hypertension, uncontrolled. 3. Hyperlipidemia. 4. Degenerative joint disease. 5. Chronic pain. 6. Hypokalemia. 7. History of supraventricular tachycardia, status post ablation. FINAL DIAGNOSES: 1. Chest pain no evidence of myocardial infarction. 2. Hypertension, uncontrolled, improved. 3. Hyperlipidemia. 4. Degenerative joint disease. 5. Chronic pain. 6. Hypokalemia, corrected. SUMMARY OF HOSPITAL COURSE: Ms. Masterson is a 67-year-old female admitted because of chest pain going on for 3 days prior to admission. The patient had relief with nitroglycerin and the patient ruled out myocardial infarction. Serial cardiac enzymes were obtained. Second troponin I was less than 0.010, third one also less than 0.010. The patient did not have any more chest pain. A cardiology consult was requested in the ER negative stress test done in early this year. The patient was also given a dose of KCl and has low potassium. The patient was restarted on home medications, but patient did not stay, she decided to go home, signed out AMA, saying she feels better. She did not want any tests done now. So, the patient was not given any prescriptions. She left the hospital AMA. [facility]
== END 2018-05-14 19:43 | disposition left against medical advice (07) ==
LOC: ERS 09:14 → ERHOLD 12:00 → 2SW 14:51
PROVIDERS: ADMIT Internal Medicine; ATTEND Internal Medicine
DX: R07.2 Precordial pain (principal); I10 Essential (primary) hypertension; M19.90 Unspecified osteoarthritis, unspecified site; E78.5 Hyperlipidemia, unspecified; I47.2 Ventricular tachycardia; M79.7 Fibromyalgia; G47.30 Sleep apnea, unspecified; F17.210 Nicotine dependence, cigarettes, uncomplicated; E87.6 Hypokalemia; Z79.82 Long term (current) use of aspirin; Z79.899 Other long term (current) drug therapy; Z88.0 Allergy status to penicillin; Z88.1 Allergy status to other antibiotic agents; Z88.2 Allergy status to sulfonamides; Z88.5 Allergy status to narcotic agent
CPT/HCPCS: 71045; 80053; 82550; 82553; 83880; 84484 ×2; 85025; 93005; 96374; 99285; G0378 ×2; 36415; 81003; 81015; J3010